=== PATIENT | female | born 1990 | race Caucasian/White ===

== ENCOUNTER 2018-06-03 07:51 | Emergency (ER) | payer BC ==
[2018-06-03] MEDS ORDERED: DUONEB 0.5-3 MG/3 ml Neb IH ONE ×2 (08:12→08:27)
--- NOTE | 2018-06-03 08:19 | ERPHSYRPT ---
- History of Present Illness Time Seen by Provider: 06/03/18 08:08 Source: patient Exam Limitations: no limitations Patient Subjective Stated Complaint: PT C/O BEING SOB X 1 WEEKS WHEN PHYSICALLY ACTIVE. PT STATES. WORSE LAST 3 DAYS. PT STATES THIS MORNING STARTED "WHEEZING AND BREATHING REAL FAST" WHILE IN THE SHOWER. Triage Nursing Assessment: PT HYPERVENTILATING ON ARRIVAL, WHEELED TO ROOM, PT EDUCATED ON DEEP BREATHING AND EXHALING THROUGH MOUTH SLOWLY. PT PINK/WARM/DRY, RESP RAPID AND SHALLOW INITIALLY, PT BREATHING EASY AFTER 5 MIN OF LAYING IN BED. A&OX4. Physician History: 27-year-old white female with complaint of short of breath for one week states she becomes short of breath when she becomes active she states it's been worse for the past 3 days became severe after getting out of the shower today. Patient denies any fevers no nausea no vomiting. Past medical history includes anemia, chronic back pain. past surgical history includes right foot surgery. Social history former smoker Timing/Duration: week(s) (short of breath for a we) Activities at Onset: activity Severity of Dyspnea-Max: moderate Severity of Dyspnea-Current: moderate Possible Cause: no prior episodes Modifying Factors: Improves With: activity Associated Symptoms: anxiety, No intermittent, No cough, No chest pain/ discomfort, No edema, No fever, No insomnia, No loss of appetite, No lightheadedness, No wheezing, No weakness, No ankle swelling, No chills, No hemoptysis, No calf pain, No dizziness, No heaviness, No heart racing, No lightheadedness, No leg swelling, No muscle spasms feet, No muscle spasms hands , No painful breathing, No productive cough, No sweating, No tightness International travel in last 2 weeks: No Allergies/Adverse Reactions: cefuroxime [From Ceftin] Allergy (Unknown, Verified 06/03/18 08:07) erythromycin base Allergy (Verified 06/03/18 08:06) Home Medications: No Reportable Medications [No Reported Medications] 06/03/18 [History] Hx Tetanus, Diphtheria Vaccination/Date Given: Yes Hx Influenza Vaccination/Date Given: Yes Hx Pneumococcal Vaccination/Date Given: No Immunizations Up to Date: Yes - Review of Systems Constitutional: No Fever, No Chills Eyes: No Symptoms Ears, Nose, & Throat: No Symptoms Respiratory: Dyspnea, No Cough, No Cyanosis, No Dyspnea on Exertion (BAGLEY), No Stridor, No Wheezing, No Other Cardiac: No Chest Pain, No Edema, No Syncope Abdominal/Gastrointestinal: No Abdominal Pain, No Nausea, No Vomiting, No Diarrhea Genitourinary Symptoms: No Dysuria Musculoskeletal: No Back Pain, No Neck Pain Skin: No Rash Neurological: No Dizziness, No Focal Weakness, No Sensory Changes Psychological: No Symptoms, Anxiety Endocrine: No Symptoms All Other Systems: Reviewed and Negative - Past Medical History Pertinent Past Medical History: Yes Neurological History: No Pertinent History ENT History: No Pertinent History Cardiac History: No Pertinent History Respiratory History: No Pertinent History Endocrine Medical History: No Pertinent History Musculoskeletal History: Other GI Medical History: No Pertinent History History: No Pertinent History Psycho-Social History: No Pertinent History Female Reproductive Disorders: No Pertinent History Other Medical History: ANEMIA - Past Surgical History Past Surgical History: Yes Musculoskeletal: Orthopedic Surgery Other Surgical History: R FOOT SURG FOR FX, CHOLECYSTECTOMY - Social History Smoking Status: Former smoker How long have you smoked: 5 Exposure to second hand smoke: Yes Drug Use: none Patient Lives Alone: No - Female History Hx Last Menstrual Period: 05/03/19 Hx Now: No - Nursing Vital Signs Nursing Vital Signs: Initial Vital Signs Temperature 99.0 F 06/03/18 07:52 Pulse Rate 122 H 06/03/18 07:52 Respiratory Rate 44 H 06/03/18 07:52 Blood Pressure 113/85 06/03/18 07:52 O2 Sat by Pulse Oximetry 97 06/03/18 07:52 Pain Scale Pain Intensity 4 - Physical Exam General Appearance: mild distress, alert, anxiety Eye Exam: PERRL/EOMI Ears, Nose, Throat Exam: hearing grossly normal, normal ENT inspection, normal pharynx, No abnormal TM (R), No abnormal TM (L), No sinus pain/drainage, No hearing decreased, No nasal congestion, No pharyngeal erythema, No tonsillar exudate, No tonsillar swelling Neck Exam: normal inspection, supple Respiratory Exam: diminished breath sounds Cardiovascular/Chest Exam: normal heart sounds, regular rate/rhythm, normal peripheral pulses, tachycardia Abdominal/Gastrointestinal Exam: soft, No tenderness, No distention, No mass Extremity Exam: non-tender, normal range of motion, normal inspection, no calf tenderness, no pedal edema Peripheral Pulses Exam: dorsalis-pedis (R): 2+, dorsalis-pedis (L): 2+ Neurologic Exam: alert, oriented x 3, cooperative, juvenile justice officer II-XII nml as tested, sensation nml, No motor deficits Skin Exam: normal color, warm, No dry SpO2 Interpretation: normal (97%) SpO2: 97 - Course Nursing assessment & vital signs reviewed: Yes EKG Interpreted by Me: RATE (118 bpm), Sinus Tach, Right [place] Deviation, Other ( EKG:sinus tachycardia, 118 bpm, right axis deviation, no acute ST or T wave changes noted) - Radiology Exams Chest X-ray Interpretation: Discussed w/ radiologist (chest x-ray: Subtle asymmetric right base infiltrate versus atelectasis. Remaining heart, lung, and bony thorax normal) - CT Exams Chest CT Interpretation: Discussed w/radiologist (CTA chest: Impression 1. Negative pulmonary embolus. Incidental bilateral effusion/atelectasis right greater than left. 2. Moderate pericardial effusion. Echocardiogram may yield further information. 3. 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 4. Fatty liver.) Ordered Tests: Active Orders 24 hr Category Date Time Status Suspension Cord Tier STAT Care 06/03/18 08:13 Active EKG-ER Only STAT Care 06/03/18 08:12 Active IV Insertion STAT Care 06/03/18 08:12 Active CHEST 1 VIEW (PORTABLE) Stat Exams 06/03/18 08:13 Completed CHEST WITH CONTRAST [CT] Stat Exams 06/03/18 09:35 Completed CBC W DIFF Stat Lab 06/03/18 08:30 Results CMP Stat Lab 06/03/18 08:30 Completed D-DIMER QUANTITATION Stat Lab 06/03/18 08:30 Completed HCG QUALITATIVE,SERUM Stat Lab 06/03/18 08:30 Completed Manual Differential NC Stat Lab 06/03/18 08:30 Results NT PRO BNP Stat Lab 06/03/18 08:30 Completed Pathologist Review Stat Lab 06/03/18 08:30 Results VENOUS BLOOD GAS Stat Lab 06/03/18 08:30 Completed Peak Expiratory Flow Rate DAILY RT 06/03/18 07:00 Active Respiratory Nebulizer STAT RT 06/03/18 08:14 Completed Respiratory Therapy Assessment DAILY RT 06/04/18 08:33 Active Medication Summary Generic Name Dose Route Start Last Admin Trade Name Freq PRN Reason Stop Dose Admin Sodium Chloride 1,000 mls @ 100 mls/hr 06/03/18 09:00 06/03/18 09:24 Sodium Chloride 0.9% 1000 Ml IV 07/03/18 08:59 100 mls/hr .Q10H KYLEE Administration Levofloxacin/Dextrose 500 mg in 100 mls @ 100 mls/hr 06/03/18 11:06 Levofloxacin 500mg/100ml D5w IV 06/03/18 12:05 STAT STA Discontinued Medications Generic Name Dose Route Start Last Admin Trade Name Freq PRN Reason Stop Dose Admin Albuterol/Ipratropium 3 ml 06/03/18 08:12 06/03/18 08:33 Duoneb 0.5-3 Mg/3 Ml Neb IH 06/03/18 08:13 3 ml STAT ONE Administration Albuterol/Ipratropium Confirm 06/03/18 08:27 Duoneb 0.5-3 Mg/3 Ml Neb Administered 06/03/18 08:28 Dose 3 ml IH .STK-MED ONE Lab/Rad Data: Laboratory Result Diagrams 06/03/18 08:30 06/03/18 08:30 Laboratory Results 06/03/18 06/03/18 06/03/18 Range/Units 08:30 08:30 08:30 WBC (4.0-10.5) K/mm3 RBC (4.1-5.4) M/mm3 Hgb (12.0-16.0) gm/dl Hct (35-47) % MCV (78-100) fl MCH (26-32) pg MCHC (32-36) g/dl RDW (11.5-14.0) % Plt Count (150-450) K/mm3 MPV (6-9.5) fl Segmented Neutrophils (36.0-66.0) % Band Neutrophils (0.0-2.0) % Lymphocytes (Manual) (24-44) % Monocytes (Manual) (0.0-12.0) % Eosinophils (Manual) (0.00-3.0) % Basophils (Manual) Atypical Lymphocytes % Platelet Estimate (NORMAL) RBC Morphology Smear Path Review D-Dimer 2497 H* (215-500) ng/mL pO2/FiO2 Ratio % VBG pH (7.32-7.42) VBG pCO2 at Pat Temp (42-55) mm/Hg VBG pO2 at Pat Temp (25-40) mm/Hg VBG HCO3 (22-28) meq/L VBG O2 Sat (Pollo) (95-100) VBG Base Excess (-2.0-2.0) VBG Hemoglobin VBG Carboxyhemoglobin (0.0-6.9) % T HGB POC Potassium (3.5-5.1) Sodium 137 (137-145) mmol/L Potassium 3.8 (3.5-5.1) mmol/L Chloride 106 (98-107) mmol/L Carbon Dioxide 22 (22-30) mmol/L Anion Gap 12.8 (5-15) MEQ/L BUN 11 (7-17) mg/dL Creatinine 0.59 (0.52-1.04) mg/dL Estimated GFR > 60.0 ML/MIN Glucose 102 (74-106) mg/dL Calcium 8.4 (8.4-10.2) mg/dL Total Bilirubin 0.90 (0.2-1.3) mg/dL AST 82 H (14-36) U/L ALT 44 H (0-35) U/L Alkaline Phosphatase 103 (38-126) U/L NT-Pro-B Natriuret Pep 1230 H (0-450) pg/mL Serum Total Protein 7.2 (6.3-8.2) g/dL Albumin 3.2 L (3.5-5.0) g/dL Serum , Qual NEGATIVE (Negative) 06/03/18 06/03/18 Range/Units 08:30 08:30 WBC 8.5 (4.0-10.5) K/mm3 RBC 4.20 (4.1-5.4) M/mm3 Hgb 10.9 L (12.0-16.0) gm/dl Hct 35.1 (35-47) % MCV 83.6 (78-100) fl MCH 25.9 L (26-32) pg MCHC 31.1 L (32-36) g/dl RDW 18.3 H (11.5-14.0) % Plt Count 148 L (150-450) K/mm3 MPV 9.2 (6-9.5) fl Segmented Neutrophils 23 L (36.0-66.0) % Band Neutrophils 3 H (0.0-2.0) % Lymphocytes (Manual) 52 H (24-44) % Monocytes (Manual) 9 (0.0-12.0) % Eosinophils (Manual) 1 (0.00-3.0) % Basophils (Manual) Not Reportable Atypical Lymphocytes 12 % Platelet Estimate NORMAL (NORMAL) RBC Morphology NORMAL Smear Path Review Pending D-Dimer (215-500) ng/mL pO2/FiO2 Ratio 21.0 % VBG pH 7.49 H (7.32-7.42) VBG pCO2 at Pat Temp 28 L (42-55) mm/Hg VBG pO2 at Pat Temp 43 H (25-40) mm/Hg VBG HCO3 21.3 L (22-28) meq/L VBG O2 Sat (Pollo) 85.3 L (95-100) VBG Base Excess -1.1 (-2.0-2.0) VBG Hemoglobin 11.5 VBG Carboxyhemoglobin 3.8 (0.0-6.9) % T HGB POC Potassium 3.8 (3.5-5.1) Sodium (137-145) mmol/L Potassium (3.5-5.1) mmol/L Chloride (98-107) mmol/L Carbon Dioxide (22-30) mmol/L Anion Gap (5-15) MEQ/L BUN (7-17) mg/dL Creatinine (0.52-1.04) mg/dL Estimated GFR ML/MIN Glucose (74-106) mg/dL Calcium (8.4-10.2) mg/dL Total Bilirubin (0.2-1.3) mg/dL AST (14-36) U/L ALT (0-35) U/L Alkaline Phosphatase (38-126) U/L NT-Pro-B Natriuret Pep (0-450) pg/mL Serum Total Protein (6.3-8.2) g/dL Albumin (3.5-5.0) g/dL Serum , Qual (Negative) - Progress Progress: improved Air Movement: fair Progress Note: 06/03/18 11:07 27-year-old white female arrives with complaint of shortness of breath for one week worse for the past 3 days and much worse after getting out of shower this morning. Patient states that she was being worked up for possible leukemia by her family doctor. Patient arrives hyperventilating anxious. Patient with a temperature of 99 pulse 122 respirations 44 blood pressure 113/ 85 sats were 97%. Patient with an EKG sinus tachycardia 118 bpm right axis deviation no acute ST or T wave changes are noted. Patient with a chest x-ray which is read as having subtle asymmetric right base infiltrate versus atelectasis remaining heart-lung and bony thorax were read as normal CT of the patient's chest obtain secondary to elevated d-dimer and shortness of breath remarkable for 1. Negative pulmonary embolism. Incidental bilateral effusions/atelectasis right greater than left. 2. Moderate pericardial effusion echocardiogram may yield further information. 3. 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 4. Fatty liver. Patient with CBC white blood cell a 0.5 hemoglobin 10.9 hematocrit 35.1 platelets 148 Patient's chemistry sodium 137 potassium 3.8 chloride 106 CO2 22 BUN 11 creatinine 0.59 glucose 102 AST was 82 a LT 44 BNP 1230 patient's d-dimer 2497 patient's venous gases pH 7.49 PCO2 28 Patient is given DuoNeb treatment with improvement she did remain somewhat tachycardic with a heart rate of 1:15 she was also given normal saline at 100 mL per hour. Cipro 500 mg IV was ordered on the patient. Patient did have positive rheumatoid factor on previous labs done as an outpatient. I have discussed the patient's case with Dr. Sierra at [facility]. Will transfer patient to [facility]. Diagnosis 1 shortness of breath 2. Pleural effusions 3. Pericardial effusions 4. Pneumonia. - Departure Time of Disposition: 10:54 Departure Disposition: Transfer ([facility] Dr Sierra) Clinical Impression: Shortness of breath, Pericardial effusion, Pleural effusion Pneumonia Qualifiers: Pneumonia type: due to unspecified organism Laterality: unspecified laterality Lung location: unspecified part of lung Qualified Code(s): J18.9 - Pneumonia, unspecified organism Condition: Fair Critical Care Time: No Referrals: SARAH DUKE YOKER MACHINE OPERATOR [Primary Care Provider] -
[2018-06-03 08:46] LABS: Hematocrit 35.1 % (35-47); Hemoglobin 10.9 gm/dl (12.0-16.0); Mean Cell Volume 83.6 fl (78-100); Mean Corpuscular Hgb Concent. 31.1 g/dl (32-36); Mean Platelet Volume 9.2 fl (6-9.5); Platelet Count 148 K/mm3 (150-450); Red Cell Distribution Width 18.3 % (11.5-14.0); White Blood Count 8.5 K/mm3 (4.0-10.5)
[2018-06-03 08:55] LABS: VBG BASE EXCESS -1.1 (-2.0-2.0); VBG CARBOXYHEMOGLOBIN 3.8 % T HGB (0.0-6.9); VBG HCO3- 21.3 meq/L (22-28); VBG HEMOGLOBIN 11.5; VBG O2 SATURATION 85.3 (95-100); VBG POTASSIUM 3.8 (3.5-5.1); VBG pH 7.49 (7.32-7.42)
[2018-06-03 08:56] LABS: Mean Corpuscular Hemoglobin 25.9 pg (26-32)
[2018-06-03] MEDS ORDERED: Sodium Chloride 0.9% 1000 ML 1,000 ML IV SCH (09:00)
[2018-06-03 09:15] LABS: ATYPICAL LYMPHS 12 %; Eosinophil 1 % (0.00-3.0); Lymphocytes 52 % (24-44); Monocyte 9 % (0.0-12.0); Neutrophils 23 % (36.0-66.0); Total Cells Counted 100
[2018-06-03 09:16] LABS: BAND 3 % (0.0-2.0)
[2018-06-03 09:17] LABS: Platelet Estimate NORMAL (NORMAL)
[2018-06-03 09:19] LABS: ALBUMIN 3.2 g/dL (3.5-5.0); ALKALINE PHOSPHATASE 103 U/L (38-126); ANION GAP 12.8 MEQ/L (5-15); BLOOD UREA NITROGEN 11 mg/dL (7-17); CHLORIDE 106 mmol/L (98-107); Calcium 8.4 mg/dL (8.4-10.2); Carbon Dioxide 22 mmol/L (22-30); Creatinine 1 0.59 mg/dL (0.52-1.04); Glucose 102 mg/dL (74-106); NT PRO BNP 1230 pg/mL (0-450); Potassium 3.8 mmol/L (3.5-5.1); SGOT/AST 82 U/L (14-36); SGPT/ALT 44 U/L (0-35); SODIUM 137 mmol/L (137-145); Total Protein 7.2 g/dL (6.3-8.2)
--- NOTE | 2018-06-03 09:20 | XRAY ---
Indication: Short of breath. Comparison: None Portable chest demonstrates subtle asymmetric right base infiltrate versus atelectasis. Remaining heart, lungs, and bony thorax normal.
[2018-06-03] MEDS ORDERED: Sodium Chloride 0.9% 1000 ML 1,000 ML ONE (09:23)
[2018-06-03 09:58] VITALS: PULSE 120
--- NOTE | 2018-06-03 10:40 | XRAY ---
Indication: Short of breath and weakness 1 week. Elevated d-dimer. History leukemia. Multiple contiguous axial images obtained through the chest using 100 cc Isovue 370 contrast and PE protocol. Comparison: None There is satisfactory opacification of the pulmonary arteries to include the lobar and segmental branches. No filling defect or pulmonary embolus. Heart is not enlarged with moderate pericardial effusion. Aorta is normal in course and caliber. [place] mediastinal lymph nodes, largest distal paratracheal measuring 1.6 x 2.2 cm. No pathologic hilar lymphadenopathy. Examination of the lung parenchyma demonstrates small right and tiny left effusions with mild compressive atelectasis. No suspicious pulmonary mass, nodule, or infiltrate. Bony thorax intact. Small bilateral axillary lymph nodes, largest on the left measuring 1 x 3 cm. Limited upper abdomen demonstrates prominent mesenteric root lymph node, 1.7 x 3 cm. Also 20 cm splenomegaly, mild fatty liver, and cholecystectomy clips. Impression: 1. Negative pulmonary embolus. Incidental bilateral effusions/atelectasis, right greater than left. 2. Moderate pericardial effusion. Echocardiogram may yield further information. 3. Enlarged mediastinal/mesenteric root lymph nodes and splenomegaly presumed related to patient's history leukemia. 4. Fatty liver. CT DI 28.13
[2018-06-03] MEDS ORDERED: Levofloxacin 500MG/100ML D5W 500 MG/100 ML BAG IV STA (11:06)
[2018-06-03 11:34] VITALS: BP 109/64; O2SAT 95
[2018-06-03] MEDS ORDERED: Levofloxacin 500MG/100ML D5W 500 MG/100 ML BAG IV ONE (11:36)
== END 2018-06-03 11:59 | disposition short-term general hospital (02) ==
LOC: ED 07:51
DX: R06.02 Shortness of breath (principal); J90 Pleural effusion, not elsewhere classified; J18.9 Pneumonia, unspecified organism; F41.9 Anxiety disorder, unspecified; Z79.899 Other long term (current) drug therapy
CPT/HCPCS: 36000; 36415; 71045; 71260; 80053; 81025; 82805; 83880; 85025; 85379; 93005; 93041; 94150; 94640; 96360; 96361; 96365; 96374; 99285; J1956; A9270-GY